=== PATIENT | female | born 1975 | race Caucasian/White ===

== ENCOUNTER 2020-11-17 15:51 | Outpatient (CLI) | payer OTHER | END 2020-11-17 15:52 | disposition home or self-care (01) | LOC: BICMAMMO 15:51 | PROVIDERS: ATTEND Family Medicine Sports Medicine | DX: Z12.31 Encounter for screening mammogram for malignant neoplasm of breast (principal); Z80.3 Family history of malignant neoplasm of breast | CPT/HCPCS: 77063; 77067 ==

== ENCOUNTER 2022-09-14 15:54 | Outpatient (CLI) | payer OTHER | END 2022-09-14 15:55 | disposition home or self-care (01) | LOC: BICMAMMO 15:54 | PROVIDERS: ATTEND Family Medicine | DX: Z12.31 Encounter for screening mammogram for malignant neoplasm of breast (principal); Z80.3 Family history of malignant neoplasm of breast | CPT/HCPCS: 77063; 77067 ==